=== PATIENT | female | born 1970 | race Caucasian/White ===

== ENCOUNTER → 2016-08-31 | Outpatient (CLI) | payer MEDICAID | END | disposition short-term general hospital (02) | LOC: CLOBGYN 11:04 | DX: N93.0 Postcoital and contact bleeding (principal); N92.6 Irregular menstruation, unspecified; I10 Essential (primary) hypertension; N91.5 Oligomenorrhea, unspecified; D25.9 Leiomyoma of uterus, unspecified | CPT/HCPCS: 87660 ==

== ENCOUNTER → 2016-09-28 | Outpatient (CLI) | payer MEDICAID | END | disposition short-term general hospital (02) | LOC: CLOBGYN 05:47 | DX: D25.9 Leiomyoma of uterus, unspecified (principal); N93.0 Postcoital and contact bleeding; N92.6 Irregular menstruation, unspecified ==